=== PATIENT | female | born 1970 | race Caucasian/White ===

== ENCOUNTER 2017-04-25 09:41 | Day surgery (SDC) | payer MEDICAID ==
[2017-04-22 12:53] LABS: BLOOD UREA NITROGEN 15 mg/dL (7-18)
[2017-04-22 12:57] LABS: ASPARTATE AMINO TRANSFERASE 14 U/L (15-37)
[~2017-04-25] VITALS: Ht 172.7 cm; Wt 113.0 kg
[~2017-04-25 09:41] MED LIST: AMOX875T PO; DILT240C61 PO; FLUO20TA25 PO; INSU100I34 SQ; LOSA100T6 PO
[2017-04-25] MEDS ORDERED: LACTATED RINGERS 1,000 ML IV SCH (10:01)
[2017-04-25 10:07] VITALS: BP 151/76
[2017-04-25 10:23] LABS: HCG UR OBC PASS
[2017-04-25] MEDS ORDERED: MIDAZOLAM 1 MG/ML, 2ML ONE (10:39)
[2017-04-25] MEDS ORDERED: FENTANYL PF 100 MCG/2ML ONE ×2 (10:39→14:48)
[2017-04-25] MEDS ORDERED: FENTANYL PF 100 MCG/2ML IV PRN (12:30)
[2017-04-25] MEDS ORDERED: PROMETHAZINE 25 MG/ML, 1ML IV PRN (12:30)
[2017-04-25] MEDS ORDERED: METOPROLOL 1 MG/ML, 5ML IV PRN (12:30)
[2017-04-25] MEDS ORDERED: EPHEDRINE 50 MG/ML, 1ML IVPush PRN (12:30)
[2017-04-25] MEDS ORDERED: MEPERIDINE/PF 25MG/0.5ML IVPush PRN (12:30)
[2017-04-25] MEDS ORDERED: ONDANSETRON 2MG/ML, 2ML IVPush PRN (12:30)
[2017-04-25] MEDS ORDERED: ACETAMINOPHEN 325 MG TABLET PO PRN (12:30)
[2017-04-25] MEDS ORDERED: ALBUTEROL SULFATE 2.5 MG/3 ML NPPB PRN (12:30)
[2017-04-25] MEDS ORDERED: LABETALOL 5MG/ML, 20ML IV PRN (12:30)
[2017-04-25] MEDS ORDERED: OXYcodone 5 MG/5 ML ORAL.SOL UDC PO PRN (12:30)
[2017-04-25] MEDS ORDERED: HYDROmorphone 1 MG/ML, 1ML IV PRN (12:30)
[2017-04-25] MEDS ORDERED: GLYCOPYRROLATE 0.2MG/1ML, 5ML ONE (12:58)
[2017-04-25] MEDS ORDERED: NEOSTIGMINE 1 MG/ML, 10ML ONE (12:58)
[2017-04-25] MEDS ORDERED: SUCCINYLCHOLINE 20 MG/ML, 10ML ONE (12:58)
[2017-04-25] MEDS ORDERED: ONDANSETRON 2MG/ML, 2ML ONE ×2 (12:58→14:54)
[2017-04-25] MEDS ORDERED: PROPOFOL 10 MG/ML, 20ML ONE (12:58)
[2017-04-25] MEDS ORDERED: ROCURONIUM 10 MG/ML ONE (12:58)
[2017-04-25] MEDS ORDERED: CEFAZOLIN 1,000 MG ONE (12:58)
[2017-04-25] MEDS ORDERED: ACETAMINOPHEN 650 MG/20.3 ML UDC ONE (14:47)
[2017-04-25] MEDS ORDERED: OXYcodone 5 MG/5 ML ORAL.SOL UDC ONE (14:48)
[2017-04-25] MEDS ORDERED: PROMETHAZINE 25 MG/ML, 1ML ONE (14:54)
[2017-04-25] MEDS ORDERED: hydrALAzine 20 MG/ML, 1ML ONE (15:22)
[2017-04-25] MEDS: hydrALAzine 20 MG/ML, 1ML IV PRN ×2 (15:23→15:43)
== END 2017-04-25 18:05 | disposition home or self-care (01) ==
LOC: OUT 09:41
PROVIDERS: ATTEND Orthopaedic Surgery
DX: E11.40 Type 2 diabetes mellitus with diabetic neuropathy, unspecified (principal); L97.429 Non-pressure chronic ulcer of left heel and midfoot with unspecified severity; I10 Essential (primary) hypertension; E66.9 Obesity, unspecified; Z68.38 Body mass index [BMI] 38.0-38.9, adult
CPT/HCPCS: 28114; 36415; 73620; 76001; 80053; 81025; 82962; 87070; 87075; 87077; 87176; 87186; 87205; 93005; J0330; J0360; J0690; J2250; J2405; J2550; J2704; J2710; J3010; J7120; J3490